=== PATIENT | male | born 1980 | race Caucasian/White ===

== ENCOUNTER 2020-05-10 22:39 | Emergency (ER) | payer BC ==
[~2020-05-10] VITALS: Ht 160 cm; Wt 106.2 kg
[2020-05-10 22:41] VITALS: Ht 160 cm; Wt 106.2 kg
[2020-05-11 00:07] VITALS: BP 126/85
== END 2020-05-11 00:07 | disposition home or self-care (01) ==
LOC: ED 22:39
DX: M25.512 Pain in left shoulder (principal)
CPT/HCPCS: J1885